=== PATIENT | female | born 1935 | race Caucasian/White ===

== ENCOUNTER → 2017-01-09 | Outpatient (CLI) | payer MEDICARE, OTHER ==
[2017-01-09 16:39] LABS: ABSOLUTE BASOPHILS # (AUTO) 0.1 10^3/uL (0.0-0.2); ABSOLUTE EOSINOPHILS # (AUTO) 0.1 10^3/uL (0.0-0.6); ABSOLUTE LYMPHOCYTES (AUTO) 1.8 10^3/uL (0.5-4.7); ABSOLUTE MONOCYTES (AUTO) 0.5 10^3/uL (0.1-1.4); ABSOLUTE NEUT (AUTO) 3.6 10^3/uL (1.7-8.2); EOSINOPHILS % (AUTO) 0.8 % (0-6); HEMATOCRIT 38.3 % (36.0-47.0); HEMOGLOBIN 12.9 g/dL (12.0-15.5); HGB HCT DIFFERENCE 0.4; LYMPHOCYTES % (AUTO) 30.3 % (13-45); MEAN CORPUSCULAR HEMOGLOBIN 31.3 pg (27.0-33.4); MEAN CORPUSCULAR HGB CONC 33.7 g/dL (32.0-36.0); MEAN CORPUSCULAR VOLUME 93 fl (80-97); MONOCYTES % (AUTO) 7.8 % (3-13); RED BLOOD COUNT 4.13 10^6/uL (3.72-5.28); RED CELL DISTRIBUTION WIDTH 12.9 % (11.5-14.0); SEGMENTED NEUTROPHILS % (AUTO) 60.1 % (42-78)
[2017-01-09 16:56] LABS: ALANINE AMINOTRANSFERASE 19 U/L (9-52); ALBUMIN 4.3 g/dL (3.5-5.0); ALKALINE PHOSPHATASE 68 U/L (38-126); AMYLASE 66 U/L (30-110); ANION GAP 10 (5-19); ASPARTATE AMINO TRANSFERASE 17 U/L (14-36); BILIRUBIN,DIRECT 0.1 mg/dL (0.0-0.4); BILIRUBIN,TOTAL 0.6 mg/dL (0.2-1.3); BLOOD UREA NITROGEN 26 mg/dL (7-20); CALCIUM 10.3 mg/dL (8.4-10.2); CARBON DIOXIDE 29 mmol/L (22-30); CHLORIDE 105 mmol/L (98-107); CREATININE RESULT 0.72 mg/dL (0.52-1.25); GLUCOSE 92 mg/dL (75-110); LIPASE 206.3 U/L (23-300); SODIUM 144.3 mmol/L (137-145); TOTAL PROTEIN 7.6 g/dL (6.3-8.2)
--- NOTE | 2017-01-10 11:32 | HISTORY AND PHYSICAL E ---
History and Physical NAME: KAMI PAULA : 1935 AGE: 81Y ADMITTED: 01/16/2017 ROOM: CHIEF COMPLAINT: Abdominal pain. HISTORY OF PRESENT ILLNESS: Patient known to me since year 1999 where I saw her secondary to sigmoid diverticulosis in the descending colon, abdominal pain. At that time, she was followed by Dr. Raines. The patient did have upper endoscopy year 1999 showing sparse hiatus hernia, esophagitis, gastritis, duodenitis, H. pylori negative. The patient has a history of fatty liver. Now she presented with loss of appetite, anorexia, hiatus hernia. She did have ultrasound showing hepatic cyst, no cholelithiasis. SOCIAL HISTORY: , 3 children. Does not smoke. Does not drink. PAST SURGICAL HISTORY: Left inguinal hernia. REVIEW OF SYSTEMS: RESPIRATORY: Shortness of breath in the morning. CARDIAC: Mild heart attack. ENDOCRINE: Negative. GASTROINTESTINAL: Reflux and diarrhea. PHYSICAL EXAMINATION: GENERAL: Pleasant. VITAL SIGNS: Weight 112. Blood pressure is 120/80. Temperature is afebrile, 98. Pulse is 80. Respirations 16. HEAD, EYES, EARS, NOSE, THROAT: Normal. NECK: Supple. LUNGS: Clear. ABDOMEN: Soft. NEUROLOGIC: Negative. CONCLUSION: 1. Abdominal pain. 2. She does have history of diverticulosis. PLAN: 1. Lab studies, CBC, stool cultures, chemistry profile. 2. Soft diet. 3. Upper endoscopy scheduled for 01/16/2017. DICTATING PHYSICIAN: DAYTON HANSON M.D. [id number] PHY#: [id number] ID: [id number] JOB#: [id number] ACCT: [id number] cc:DAYTON HANSON M.D. >
== END ==
LOC: OD 15:58
PROVIDERS: ATTEND Specialist
DX: R10.9 Unspecified abdominal pain (principal); R19.7 Diarrhea, unspecified; D50.9 Iron deficiency anemia, unspecified
CPT/HCPCS: 36415; 80053; 82150; 83690; 85025; 87045; 87077; 87205

== ENCOUNTER 2017-01-16 08:52 | Day surgery (SDC) | payer MEDICARE, OTHER ==
[~2017-01-16 08:52] MED LIST: EPINEPHRINE INJ 1 MG/10 ML DISP.SYRIN ONE; FLUMAZENIL INJ 0.5 MG/5 ML VIAL IV ONE; GLYCOPYRROLATE INJ 0.4 MG/2 ML VIAL ONE; NALOXONE HCL INJ/PF 0.4 MG/1 ML SDV ONE; ONDANSETRON HCL INJ/PF 4 MG/2 ML SDV ONE; PROMETHAZINE HCL INJ 25 MG/1 ML VIAL ONE
[2017-01-16] MEDS: MIDAZOLAM 2 MG/2 ML INJ ONE ×2 (10:02→10:06)
[2017-01-16] MEDS: FENTANYL CITRATE INJ/PF 100 MCG/2 ML AMPUL ONE ×2 (10:04→10:08)
[2017-01-16 11:21] VITALS: BP 144/76
[2017-01-16 11:33] LABS: ABSOLUTE EOSINOPHILS # (AUTO) 0.1 10^3/uL (0.0-0.6); ABSOLUTE LYMPHOCYTES (AUTO) 1.1 10^3/uL (0.5-4.7); ABSOLUTE MONOCYTES (AUTO) 0.2 10^3/uL (0.1-1.4); ABSOLUTE NEUT (AUTO) 3.8 10^3/uL (1.7-8.2); BASOPHILS % (AUTO) 0.5 % (0-2); HEMATOCRIT 35.8 % (36.0-47.0); HEMOGLOBIN 12.2 g/dL (12.0-15.5); HGB HCT DIFFERENCE 0.8; LYMPHOCYTES % (AUTO) 20.7 % (13-45); MEAN CORPUSCULAR HEMOGLOBIN 31.8 pg (27.0-33.4); MEAN CORPUSCULAR VOLUME 94 fl (80-97); MONOCYTES % (AUTO) 4.7 % (3-13); RED BLOOD COUNT 3.82 10^6/uL (3.72-5.28); RED CELL DISTRIBUTION WIDTH 13.2 % (11.5-14.0); SEGMENTED NEUTROPHILS % (AUTO) 73.1 % (42-78); WHITE BLOOD COUNT 5.1 10^3/uL (4.0-10.5)
[2017-01-16 11:56] LABS: AMYLASE 42 U/L (30-110); LIPASE 144.6 U/L (23-300)
[2017-01-16 11:59] LABS: C-REACTIVE PROTEIN < 5.0 mg/L (<10.0)
[2017-01-16 12:17] LABS: ERYTHROCYTE SEDIMENTATION RATE 17 mm/hr (0-30)
--- NOTE | 2017-01-16 12:53 | OPERATIVE REPORT E ---
Operative Report NAME: KAMI PAULA : 1935 AGE: 81Y DATE OF SURGERY: ROOM: PREOPERATIVE DIAGNOSIS: An 81-year-old female with abdominal pain. POSTOPERATIVE DIAGNOSES: 1. Hiatus hernia, 1 cm. 2. Mild esophagitis. 3. Mild gastritis. 4. Mild duodenitis. OPERATION: 1. Esophagoscopy. 2. Gastroscopy. 3. Duodenoscopy. SURGEON: DAYTON HANSON M.D. ANESTHESIA: Versed 3, fentanyl 50. TISSUE REMOVED OR ALTERED: 1. Gastric biopsy. 2. Duodenal biopsy. PROCEDURE: Baby scope passed under guided vision; no difficulties. Esophagoscopy, junction at 38, small hiatus hernia, mild esophagitis; gastroscopy, mild gastritis; duodenoscopy, mild duodenitis. CONCLUSION: 1. No ulcers, no bleeding, mild esophagitis, mild gastritis, mild duodenitis. Patient tolerated the procedure well and discharged to the room, stable condition. 2. Abdominal pain. 3. Mild esophagitis. 4. Mild gastritis. 5. Mild duodenitis. PLAN: 1. Awaiting biopsy results. 2. Followup office visit in the next few days. DICTATING PHYSICIAN: DAYTON HANSON M.D. [id number] Y#: [id number] ID: [id number] JOB#: [id number] ACCT: [id number] cc:DAYTON HANSON M.D., SWETANG M.D. >
--- NOTE | 2017-01-17 09:36 | DISCHARGE SUMMARY E ---
Discharge Summary NAME: KAMI PAULA : 1935 AGE: 81Y ADMITTED: 01/16/2017 DISCHARGED: 01/16/2017 HISTORY: An 81-year-old female presents with abdominal pain. Outpatient stool culture shows 1+ Campylobacter. The patient denied diarrhea. As a matter of fact, she said she is constipated. I felt no antibiotic was needed at the present time. The patient's upper endoscope shows no evidence of ulcer. She does have small hiatal hernia, mild esophagitis, mild gastritis, duodenitis. DISCHARGE PLAN: Soft diet. Awaiting biopsy results. The patient is to see us in the office in the next few days. FINAL DIAGNOSES: Gastritis, abdominal pain, recent stool culture 1+ positive Campylobacter with no diarrhea, no fever. PLAN: Awaiting biopsy. Repeat lab studies. Follow-up visit in the next few days. DICTATING PHYSICIAN: DAYTON HANSON M.D. [id number] PHY#: [id number] ID: [id number] JOB#: [id number] ACCT: [id number] cc:DAYTON HANSON M.D. >
== END 2017-01-16 11:35 | disposition home or self-care (01) ==
LOC: END 08:52
PROVIDERS: ATTEND Specialist
PROC: 0DB98ZX Excision of Duodenum, Via Natural or Artificial Opening Endoscopic, Diagnostic (ICD-10-PCS; 2017-01-16)
PROC: 0DB68ZX Excision of Stomach, Via Natural or Artificial Opening Endoscopic, Diagnostic (ICD-10-PCS; principal; 2017-01-16 10:00)
DX: K21.0 Gastro-esophageal reflux disease with esophagitis (principal); K44.9 Diaphragmatic hernia without obstruction or gangrene; K29.80 Duodenitis without bleeding; K29.50 Unspecified chronic gastritis without bleeding; A04.5 Campylobacter enteritis; R06.02 Shortness of breath; I25.2 Old myocardial infarction
CPT/HCPCS: 43239; 36415; 82150; 83690; 85025; 85652; 86140; 88342 ×2; 88305 ×2; J2250; J3010; J2405; J0171; J2310; J2550; J3490

== ENCOUNTER 2017-11-18 08:54 | Day surgery (SDC) | payer MEDICARE, OTHER ==
[~2017-11-18 08:54] MED LIST changes: -EPINEPHRINE INJ 1 MG/10 ML DISP.SYRIN ONE; -FLUMAZENIL INJ 0.5 MG/5 ML VIAL IV ONE; -GLYCOPYRROLATE INJ 0.4 MG/2 ML VIAL ONE; -NALOXONE HCL INJ/PF 0.4 MG/1 ML SDV ONE; -ONDANSETRON HCL INJ/PF 4 MG/2 ML SDV ONE; -PROMETHAZINE HCL INJ 25 MG/1 ML VIAL ONE; +PROPOFOL INJ 200 MG/20 ML VIAL IV ONE
[2017-11-18] MEDS ORDERED: PROPOFOL INJ 200 MG/20 ML VIAL IV ONE (09:16)
[2017-11-18] MEDS ORDERED: SIMETHICONE 80 MG TAB.CHEW ONE (10:06)
[2017-11-18] MEDS ORDERED: SIMETHICONE 80 MG TAB.CHEW PO ONE (10:07)
[2017-11-18 10:21] VITALS: BP 157/66
--- NOTE | 2017-11-18 13:27 | Operative Report ---
Operative Report DATE OF SURGERY: 11/18/17 Operative Report: The risks, benefits and alternatives of the procedure including risks of bleeding, patient requiring surgery are explained to the patient in detail and informed consent was obtained. Patient is taken back to the endoscopy suite and placed in the left, lateral decubital position. Timeout was called. Propofol medications administered. A rectal examination was done which did not reveal any masses, tears or fissures. An Olympus videoscope was inserted into the patient's rectum. The scope was then carefully advanced all the way to the cecum. The cecum was identified by the usual anatomical landmarks including the ileocecal valve as well as the appendiceal office. Photodocumentation is obtained. The scope was then sequentially pulled back via the various segments of the colon including the ascending colon, hepatic flexure, transverse colon, splenic flexure, descending colon and finding to the rectosigmoid portions of the colon. Retroflexion maneuvers performed. The risks benefits and alternatives of the procedure explained to the patient in detail and informed consent is obtained.A GIF Olympus video scope was inserted into the patient's mouth and hypopharynx, the esophagus is identified intubated and insufflated ,the scope was then advanced through the esophagus stomach and duodenum, retroflexion maneuver is done, the esophagus stomach and first and second portions of the duodenum examined PREOPERATIVE DIAGNOSIS: Epigastric pain. Previous history of Helicobacter pylori gastritis. Right lower quadrant pain. Change in bowel habits POSTOPERATIVE DIAGNOSIS: Moderate diverticulosis noted. Mild terminal ileitis status post biopsy rule out Crohn's disease. Internal hemorrhoids. Gastritis status post biopsy rule out Helicobacter pylori. Hiatal hernia OPERATION: Colonoscopy with biopsy. EGD with biopsy SURGEON: MOISE PETERSEN ANESTHESIA: LMAC TISSUE REMOVED OR ALTERED: As noted above COMPLICATIONS: None. ESTIMATED BLOOD LOSS: None. INTRAOPERATIVE FINDINGS: As described above. PROCEDURE: Patient tolerated the procedure well. No immediate postprocedure complications are noted. Patient discharged in good condition. Discharge date 11/18/2017. Discharge diet: Regular. Discharge activity: Regular. 2-3 week follow-up to discuss findings. Patient is instructed to call the office or proceed to the emergency room should there be any further problems or questions. We will wait on pathology. Surveillance colonoscopy 5 years.
== END 2017-11-18 10:25 | disposition home or self-care (01) ==
LOC: END 08:54
PROVIDERS: ATTEND Internal Medicine Gastroenterology
PROC: 0DB68ZX Excision of Stomach, Via Natural or Artificial Opening Endoscopic, Diagnostic (ICD-10-PCS; principal; 2017-11-18 11:00)
PROC: 0DBB8ZX Excision of Ileum, Via Natural or Artificial Opening Endoscopic, Diagnostic (ICD-10-PCS; 2017-11-18 11:00)
DX: K57.30 Diverticulosis of large intestine without perforation or abscess without bleeding (principal); K52.9 Noninfective gastroenteritis and colitis, unspecified; K64.8 Other hemorrhoids; K44.9 Diaphragmatic hernia without obstruction or gangrene; K29.50 Unspecified chronic gastritis without bleeding; M19.90 Unspecified osteoarthritis, unspecified site; K21.9 Gastro-esophageal reflux disease without esophagitis; I10 Essential (primary) hypertension; E78.5 Hyperlipidemia, unspecified; Z79.899 Other long term (current) drug therapy
CPT/HCPCS: 43239; 45380; 88342 ×2; 88305 ×2; A9270; J2704; 813

== ENCOUNTER 2018-04-12 14:43 | Emergency (ER) | payer OTHER, MEDICARE ==
[2018-04-12] MEDS ORDERED: FENTANYL CITRATE INJ/PF 100 MCG/2 ML AMPUL IV ONE (15:04)
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
[2018-04-12 17:24] VITALS: BP 168/92
== END 2018-04-12 17:15 | disposition home or self-care (01) ==
LOC: ER 14:43
DX: S90.01XA Contusion of right ankle, initial encounter (principal); S16.1XXA Strain of muscle, fascia and tendon at neck level, initial encounter; S09.90XA Unspecified injury of head, initial encounter; M25.552 Pain in left hip; V89.2XXA Person injured in unspecified motor-vehicle accident, traffic, initial encounter; E78.00 Pure hypercholesterolemia, unspecified; I10 Essential (primary) hypertension; Z86.73 Personal history of transient ischemic attack (TIA), and cerebral infarction without residual deficits
CPT/HCPCS: 99284; 96374; 73610; 71045; 73502; 70450; 72125; J3010

== ENCOUNTER → 2019-01-01 | Outpatient (CLI) | payer MEDICARE, OTHER ==
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
== END ==
LOC: OD 11:30
PROVIDERS: ATTEND Family Medicine
DX: R05 Cough (principal)
CPT/HCPCS: 71046